=== PATIENT | male | born 1995 | race Hispanic/Latino ===

== ENCOUNTER 2023-12-27 10:54 | Emergency (ER) | payer SELFPAY ==
[2023-12-27 11:09] VITALS: BP 123/79
--- NOTE | 2023-12-27 11:58 | ED.MUSCINJ ---
HPI-Injury
General
Chief Complaint: Musculo-Skeletal Complaint
Time Seen by Provider: 12/27/23 11:51
History of Present Illness-Injury
Initial Injury comments:
Patient is a 28-year-old [place]-speaking male with no medical problems here today for evaluation after he sustained a work-related injury which occurred just prior to arrival. Patient was carrying wood when he developed onset of right-sided upper
lateral thoracic back pain. He has since had mild pain in this location. He denies radiation of pain. No direct trauma or falls. He endorses pain with deep inspiration. Patient presents here today with his employer.
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
Review of Systems
Review of Systems
All Other Systems: ROS reviewed and negative except as documented in HPI and ROS
Phy Exam
Physical Exam
Physical Exam:
GENERAL: Alert , in no apparent distress
EYE: pupils equal and reactive
NECK: Supple, no significant adenopathy.
ENT: o/p clr, mmm.
CARDIAC: Regular rate and rhythm .
LUNGS: Clear breath sounds bilaterally, no acute respiratory distress, no wheezes/rales/rhonchi
ABDOMEN: Soft, without focal tenderness, no r/g, no cvat
NEUROLOGICAL: Alert and oriented, no focal neuro deficits
SKIN: Warm and dry, skin intact.
MUSCULOSKELETAL: No edema, well perfused. No tenderness. No ecchymosis. No overlying skin changes.
PSYCH: Normal and appropriate interaction.
Injury Course
Orders/Labs/Results
Orders:
Orders
12/27/23 11:59
Ibuprofen [Motrin] 600 mg PO NOW STA
Lidocaine [Lidocaine 4% Patch] 1 patch TOPICAL ONCE ONE
Apply Lidocaine patch(s) to:: Right upper thoracic back
CR Chest - 2 Views Urgent
Comment:
Reason For Exam: right sided lateral thoracic back pain
MDM/Problems Addressed
Differential Diagnosis Includes:
Patient is a 28-year-old [place]-speaking male with no medical problems here today for evaluation of right sided upper back pain that began this morning. Overall, patient appears well. Physical examination described above. We will begin with an
x-ray of the chest. Will also provide lidocaine patches and ibuprofen. Patient did take Tylenol prior to arrival. Will closely monitor and reassess.
12/27/2023 12:41: X-ray negative. Patient made aware of findings. Symptoms/findings consistent with a thoracic back strain. Will recommend topical lidocaine patches and ibuprofen/Tylenol. Recommend avoidance of heavy lifting and light duty.
Patient provided with workers capabilities form. Recommend supportive measures and close follow-up. All questions answered. Stable for discharge. lead tank mechanic #[id number] used during discharge process.
*Critical Care Note
Total Time (30-74mins, 75-104mins- exclusive of procedures): Not Applicable
ED Attending Note
-
Portions of this chart may have been created with voice recognition software.� Occasional wrong word or��sound alike� substitutions may have occurred due to the inherent limitations of voice recognition software.
Discharge Plan
Departure
Patient Disposition: Home (Routine Discharge)
Date of Disposition: 12/27/23
Time of Disposition: 12:43
Patient with high blood pressure during this ER visit?: No
Condition: Good
Covid-19: Not Applicable
Discharge Problem:
Strain of muscle and tendon of unspecified wall of thorax, initial encounter
Instructions: Back Muscle Strain
Prescriptions:
New
ibuprofen 600 mg tablet
600 mg PO Q6H PRN (Reason: Pain) 5 Days Qty: 20 0RF
lidocaine 5 % adhesive patch,medicated
1 patch topical DAILY PRN (Reason: pain) Qty: 15 0RF
Referrals:
NONE,* [Family Provider] -
Stand Alone Forms: Return to Work
Activity Restrictions/Additional Instructions:
You were seen today for evaluation of back pain.
We obtained an x-ray which is negative.
Your symptoms are likely consistent with a muscular strain. Rest. Avoid heavy lifting. Take the prescribed ibuprofen and use the prescribed topical lidocaine patches as directed as needed.
Follow-up with your doctor within the next 3 to 5 days for close re-evaluation.
Return for any new, worsening, or concerning symptoms.
Lo atendieron hoy para sandy evaluaci�n de dolor de espalda.
Obtuvimos sandy radiograf�a que es negativa.
Es probable que [place] s�ntomas geneva consistentes con sandy distensi�n muscular. Descansar. Evite levantar objetos pesados. [place] el ibuprofeno recetado y use los parches de lidoca�na t�picos recetados seg�n las indicaciones, seg�n sea necesario.
Matias un seguimiento con [place] m�dico dentro de los pr�ximos 3 a 5 d�as para sandy reevaluaci�n minuciosa.
Regrese si presenta cualquier s�ntoma nuevo, que empeore o que le preocupe.
Interventions
Interventions:
ED- Fall Risk Assessment Last Done: 12/27/23 11:58
ED-Musculoskeletal Assessment Last Done: 12/27/23 11:58
Discharge Date and Time
Print Language: BELARUSIAN
[2023-12-27] MEDS: MOTRIN 600 MG PO (12:06)
[2023-12-27] MEDS: LIDOCAINE 4% PATCH 1 PATCH TOPICAL (12:07)
== END 2023-12-27 13:05 | disposition home or self-care (01) ==
LOC: EMR 10:54
PROVIDERS: EMERGENCY PHYSICIAN Emergency Medicine
DX: S29.012A Strain of muscle and tendon of back wall of thorax, initial encounter (principal); X50.0XXA Overexertion from strenuous movement or load, initial encounter; Y99.0 Civilian activity done for income or pay
CPT/HCPCS: 99283; 71046